=== PATIENT | female | born 1955 | race Caucasian/White ===

== ENCOUNTER 2023-12-02 04:14 | Outpatient (CLI) | payer MEDICARE, SELFPAY ==
[2023-12-02 12:48] LABS: Absolute Basophil Count 0.05 10^3/uL (0.0-0.2); Absolute Eosinophil Count 0.15 10^3/uL (0.0-0.7); Absolute Lymphocyte Count 1.75 10^3/uL (1.2-3.4); Absolute Monocyte Count 0.36 10^3/uL (0.1-0.8); Absolute Neutrophil Count 1.56 10^3/uL (1.2-6.7); Basophils % 1.3; Eosinophils % 3.9; HCT 41.3 % (36.0-46.0); HGB 13.4 g/dL (11.2-15.7); Lymphocytes % 45.2; MCH 31.5 pg (27.0-33.0); MCHC 32.4 % (32.0-36.0); MCV 97 fL (80-95); MPV 9.7 fL (8.0-11.0); Monocytes % 9.3; Neutrophils % 40.3; Platelet Count 224 10^3/uL (130-400); RBC 4.25 10^6/uL (3.93-5.22); RDW 13.5 % (11.7-14.6); RDW-SD 48.9 fL; WBC 3.87 10^3/uL (4.4-10.8)
[2023-12-02 12:59] LABS: ALT 15 U/L (14-59); AST 15 U/L (15-37); Albumin 3.8 g/dL (3.4-5.0); Alkaline Phosphatase 74 U/L (46-116); Anion Gap 6.7 mmol/L (3-11); BUN 20 mg/dL (7-18); Bilirubin, Total 0.6 mg/dL (0.2-1.0); CO2 30.3 mmol/L (21.0-32.0); CREATININE 0.9 mg/dL (0.55-1.02); Calcium 9.6 mg/dL (8.5-10.1); Calculated LDL 82 mg/dL (<100); Chloride 103 mmol/L (98-107); Cholesterol 186 mg/dL (<200); Estimated GFR 70.07 (mL/min/1.73m2); Glucose 95 mg/dL (74-106); HDL Cholesterol 99 mg/dL (40-60); Potassium 3.8 mmol/L (3.5-5.1); Sodium 140 mmol/L (136-145); Total Protein 7.4 g/dL (6.4-8.2); Triglyceride 28 mg/dL (<150)
== END 2023-12-02 04:15 | disposition home or self-care (01) ==
LOC: LOS 04:14
PROVIDERS: PCP Nurse Practitioner; Visit Provider Nurse Practitioner
DX: M35.00 Sjogren syndrome, unspecified (principal); E78.5 Hyperlipidemia, unspecified; Z82.49 Family history of ischemic heart disease and other diseases of the circulatory system
CPT/HCPCS: 36415; 80053; 80061; 85025

== ENCOUNTER 2024-05-19 07:53 | Outpatient (CLI) | payer MEDICARE, SELFPAY ==
--- NOTE | 2024-05-19 07:45 | RT.EKG_ITS ---
APPROVED REPORT Exam: Resting ECG Reason for Exam: chest feels heavy with upper back pain per pt. Patient Location: O HR:65 bpm ECG Measurements Heart Rate 65 AXIS VT 149 P 59 QRSd 76 QRS 73 QT 415 T 67 QTc 432 Conclusion Sinus rhythm...normal P axis, V-rate 50- 99 Normal Electrocardiogram
== END 2024-05-19 07:54 | disposition home or self-care (01) ==
LOC: DI.KIM 07:55
PROVIDERS: PCP Nurse Practitioner; Visit Provider Nurse Practitioner
DX: R07.89 Other chest pain (principal)
CPT/HCPCS: 93010

== ENCOUNTER 2024-05-19 08:55 | Outpatient (CLI) | payer MEDICARE, SELFPAY ==
--- NOTE | 2024-05-19 08:15 | DI.RAD_ITS ---
Exam(s) XR CHEST 2V PA LATERAL EXAM: XR CHEST 2V PA LATERAL CLINICAL HISTORY: chest heaviness, R07.89. TECHNIQUE: 2D digital imaging was performed. COMPARISON: No exams were available for comparison FINDINGS: 2 views: Heart size is normal. The mediastinum is not widened. Bilateral hyperinflation noted but no infiltrates nor pleural effusions. No pulmonary edema. No pne umothorax. No fractures evident. IMPRESSION: No acute pulmonary findings.Bilateral hyperinflation noted. DATA REPOSITORY: RADIATION DOSE DELIVERED:
== END 2024-05-19 09:15 ==
LOC: DI 08:56
PROVIDERS: PCP Nurse Practitioner; Visit Provider Nurse Practitioner
DX: R07.89 Other chest pain (principal)
CPT/HCPCS: 71046

== ENCOUNTER 2024-05-19 09:02 | Outpatient (CLI) | payer MEDICARE, SELFPAY ==
[2024-05-19 08:57] LABS: Absolute Basophil Count 0.02 10^3/uL (0.0-0.2); Absolute Eosinophil Count 0.09 10^3/uL (0.0-0.7); Absolute Lymphocyte Count 1.31 10^3/uL (1.2-3.4); Absolute Monocyte Count 0.28 10^3/uL (0.1-0.8); Absolute Neutrophil Count 1.76 10^3/uL (1.2-6.7); Basophils % 0.6 %; Eosinophils % 2.6 %; HCT 42.4 % (36.0-46.0); HGB 13.9 g/dL (11.2-15.7); Lymphocytes % 37.9 %; MCH 32.5 pg (27.0-33.0); MCHC 32.8 % (32.0-36.0); MCV 99 fL (80-95); MPV 9.2 fL (8.0-11.0); Monocytes % 8.1 %; Neutrophils % 50.8 %; Platelet Count 207 10^3/uL (130-400); RBC 4.28 10^6/uL (3.93-5.22); RDW 13.2 % (11.7-14.6); RDW-SD 47.8 fL; WBC 3.46 10^3/uL (4.4-10.8)
[2024-05-19 09:32] LABS: C-Reactive Protein < 0.50 mg/dL (<or=0.5); TSH (W/Ref FT4) 2.03 uIU/mL (0.36-3.74)
[2024-05-20 15:54] LABS: Lyme Ab w Rflx to Lyme Confirm Negative (Negative)
[2024-05-20 16:00] LABS: Ro60 Ab, IgG <7.0 CU (<20.0); SS-A/Ro, IgG <2.3 CU (<20.0)
[2024-05-20 16:01] LABS: ANA Interpretation Positive (Negative); ANA Titer Pattern 1:160 Homogeneous
[2024-05-22 15:18] LABS: Anaplasma phagocytophilum Negative (Negative); B. miyamotoi PCR Negative (Negative); Babesia divergens/MO-1 Negative (Negative); Babesia duncani Negative (Negative); Babesia microti Negative (Negative); Ehrlichia chaffeensis Negative (Negative); Ehrlichia ewingii/canis Negative (Negative); Ehrlichia muris eauclairensis Negative (Negative)
== END 2024-05-19 09:03 | disposition home or self-care (01) ==
LOC: LBO 09:03
PROVIDERS: PCP Nurse Practitioner; Visit Provider Nurse Practitioner
DX: I10 Essential (primary) hypertension (principal); R53.83 Other fatigue; M35.00 Sjogren syndrome, unspecified; R07.89 Other chest pain; J45.909 Unspecified asthma, uncomplicated
CPT/HCPCS: 36415; 87798; 84443; 85025; 86038; 86140; 86235; 86618

== ENCOUNTER 2024-10-20 13:52 | Outpatient (REF) | payer MEDICARE, SELFPAY ==
[2024-10-20 17:28] LABS: Bacteria Negative HPF (Negative); C & S Indicated? No; Crystals Negative HPF (Negative); Epithelial Cells Negative HPF (Negative); Mucus Negative (Negative); RBC 0-2 HPF (0-2); WBC Negative HPF (0-5)
== END 2024-10-20 13:53 | disposition home or self-care (01) ==
LOC: LBN 13:52
PROVIDERS: PCP Nurse Practitioner; Visit Provider Nurse Practitioner Family
DX: R31.29 Other microscopic hematuria (principal)
CPT/HCPCS: 81015